=== PATIENT | female | born 1995 | race Caucasian/White ===

== ENCOUNTER 2023-12-09 17:47 | Emergency (ER) | payer MEDICAID, OTHER ==
[~2023-12-09] VITALS: Ht 154.9 cm; Wt 42.0 kg
[2023-12-09 19:09] LABS: BASOPHILS # (AUTO) 0.1 X10'3 (0-0.2); BASOPHILS % (AUTO) 0.8 % (0-1); EOSINOPHILS # (AUTO) 0.1 X10'3 (0-0.9); EOSINOPHILS % (AUTO) 1.6 % (0-6); HEMATOCRIT 37.4 % (35.0-45.0); HEMOGLOBIN 13.1 g/dl (12.0-16.0); LYMPHOCYTES # (AUTO) 2.7 X10'3 (1.1-4.8); LYMPHOCYTES % (AUTO) 32.5 % (21-51); MEAN CORPUSCULAR HEMOGLOBIN 31.4 PG (27.0-31.0); MEAN CORPUSCULAR VOLUME 89.6 FL (78-98); MEAN PLATELET VOLUME 8.8 FL (7.4-10.4); MONOCYTES # (AUTO) 0.5 X10'3 (0-0.9); MONOCYTES % (AUTO) 6.2 % (2-12); NEUTROPHILS % (AUTO) 58.9 % (42-75); PLATELET COUNT 276 X10'3 (140-440); RED BLOOD COUNT 4.18 X10'6 (4.20-5.60); RED CELL DISTRIBUTION WIDTH 12.9 % (11.5-14.5); WHITE BLOOD COUNT 8.4 X10'3 (4.5-11.0)
[2023-12-09 19:19] LABS: ALANINE AMINOTRANSFERASE 17 U/L (12-78); ALBUMIN 4.1 G/DL (3.4-5.0); ALBUMIN/GLOBULIN RATIO 1.2 (1.1-1.5); ALKALINE PHOSPHATASE 32 IU/L (46-116); ANION GAP 12 (8-16); ASPARTATE AMINO TRANSFERASE 19 U/L (10-37); BILIRUBIN,TOTAL 0.4 MG/DL (0.1-1.0); BLOOD UREA NITROGEN 6 MG/DL (7-18); BUN/CREATININE RATIO 9.4 (10.0-20.0); CALCIUM 8.8 MG/DL (8.5-10.1); CHLORIDE 106 MMOL/L (99-107); CREATININE 0.64 MG/DL (0.40-0.90); GLUCOSE 95 MG/DL (70-104); POTASSIUM 3.2 MMOL/L (3.5-5.1); SODIUM 141 MMOL/L (135-145); TOTAL CARBON DIOXIDE 23.3 MMOL/L (24-32); TOTAL PROTEIN 7.5 G/DL (6.4-8.2); eCRCL 86 ML/MIN; eGFR > 90 ML/MIN
[2023-12-09 19:27] LABS: PRO BRAIN NATRIURETIC PEPTIDE < 30 PG/ML (0-125)
[2023-12-09 20:15] VITALS: BP 118/89; PULSE 89; RESP 18; O2SAT 98
== END 2023-12-09 21:14 | disposition home or self-care (01) ==
LOC: ER 17:47
DX: R07.89 Other chest pain (principal); F41.9 Anxiety disorder, unspecified; Z88.2 Allergy status to sulfonamides
CPT/HCPCS: 36415; 71045; 80053; 83880; 84484; 85025; 93005; 99285

== ENCOUNTER 2024-11-09 15:23 | Emergency (ER) | payer MEDICAID, OTHER ==
[~2024-11-09] VITALS: Ht 157.5 cm; Wt 39.4 kg
--- NOTE | 2024-11-09 15:40 | ELECTROCARDIOGRAPH REPORT ---
[facility] Test Date: 2024-11-09 Test Time: 15:31:34 Pat Name: FÁTIMA WANG Department: EMERGENCY ROOM Room: Gender: F [employer]: : 1995 Requested By: DEPARTMENT EMERGENCY Order Number: [id number] Reading MD: Dr. Bob Moody Measurements Intervals [place] Rate: 121 P: 0 OK: 109 QRS: 265 QRSD: 91 T: 18 QT: 300 QTc: 426 Interpretive Statements A-V dual-paced complexes w/ some inhibition No further analysis attempted due to paced rhythm Electronically Signed On 11-09-2024 18:24:[address] Bob Moody Please click the below link to view image of tracing.
[2024-11-09 16:10] LABS: MEAN PLATELET VOLUME 9.3 FL (7.4-10.4); RED CELL DISTRIBUTION WIDTH 13.5 % (11.5-14.5)
--- NOTE | 2024-11-09 16:50 | Physician Documentation ---
History of Present Illness ~ Chief Complaint: Chest Pain Stated Complaint: HIGH HEART RATE Time Seen by MD: 18:55 OK to notify your PCP?: Yes Primary Medical Doctor: FROM OUT [place]OWN Source: patient, RN/MD, RN notes reviewed, old records Mode of Arrival: POV Exam Limitations: no limitations HPI This is a 29-year-old female with a history of recurrent episodes of sinus tachycardia, patient reports that she had a episode of tachycardia earlier today resulting in feeling of chest pain, shortness of breath and weakness, patient reports pulse at home was 168. Patient reports that she is seen by Dr. Canchola for this condition. Patient informs me that she has had prior echocardiograms but never prescribed any medications she no longer takes any stimulants such as caffeine. However today she was having severe tightness dizziness sweaty felt like she was going to pass out and had a near syncopal event. She is still having chest pain at rest despite her heart rate now in the 110s. Patient is not on any medications. She states her baseline low blood pressure of a systolic of 110 may be why she is not on blood pressure medications she is unaware. 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 The episode seemed to be more frequent and severe. She has never been referred to an supply chain systems manager. Medication Reconciliation Allergies: Coded Allergies: Sulfa (Sulfonamide Antibiotics) (Verified Allergy, Unknown, 11/09/24) Past Medical History Past Medical History: Arrhythmia, Anxiety Past Surgical History: no surgical history Alcohol Use: Occasionally Drug Use: none Lives with: Family Lives In: Home Occupation: unemployed Review of Systems All Other Systems at this time: Reviewed and Negative ROS As stated above in the HPI, otherwise all systems are reviewed and negative. Physical Exam Vital Signs: RN Vital Signs have been reviewed: Yes, Temperature: 98.7, Source: Oral, Heart Rate: 121, Respiratory Rate: 18, BP: 112/73, Pulse Oximetry: 98, Weight: 39.400 Physical Exam VITALS: Reviewed and as above. GENERAL: Alert, nontoxic appearing, no apparent distress. HEENT: RESPIRATORY: No increased work of breathing, no respiratory distress, speaking in full clear sentences General: The patient is well developed, well nourished, nontoxic appearing and is in mild acute distress. Skin: [place], warm and dry with no rashes. HEENT: Head was normocephalic and atraumatic. Eyes - pupils equal, round, reactive to light and accommodation. Extraocular movements were intact. Conjunctivae were nonicteric. The mouth and oropharynx were clear with moist mucous membranes. Neck: Supple and nontender. There was no jugular venous distention, Chest: Clear to auscultation bilaterally without wheezes, rales or rhonchi. No accessory muscle use. Heart: Rate regular and rhythmic. S1, S2. No murmurs. Palpation of the chest wall was normal Abdomen: Soft, nontender and nondistended. Positive bowel sounds. No guarding or rebound. Extremities: No cyanosis, clubbing or edema. The patient moves all extremities. Pulses were equal and symmetric. Neurologic: Motor sensory grossly intact Psychologic: The patient was oriented to person, place and time. The patient demonstrated appropriate judgement and insight. Progress Results/Orders Reviewed/noted all lab results: Yes Results/Orders Orders - BOB MOODY MD Drug Screen, Urine (11/09/24 19:03) Completed Orders - BOB MOODY MD Pt Inr (11/09/24 19:03) PTT (11/09/24 19:03) Vital Signs 11/09/24 11/09/24 11/09/24 15:54 19:57 19:57 Temp 98.7 98.7 Pulse 121 107 Resp 18 23 20 B/P (MAP) 112/73 116/69 (85) Pulse Ox 98 99 Laboratory Tests Test 11/09/24 15:34 11/09/24 18:23 11/09/24 19:23 White Blood Count 10.1 Red Blood Count 4.51 Hemoglobin 13.5 Hematocrit 39.9 Mean Corpuscular Volume 88.6 Mean Corpuscular Hemoglobin 29.9 Mean Corpuscular Hemoglobin Concent 33.8 Red Cell Distribution Width 13.5 Platelet Count 277 Mean Platelet Volume 9.3 Neutrophils (%) (Auto) 65.3 Lymphocytes (%) (Auto) 24.1 Monocytes (%) (Auto) 6.8 Eosinophils (%) (Auto) 3.1 Basophils (%) (Auto) 0.7 Neutrophils # (Auto) 6.6 Lymphocytes # (Auto) 2.4 Monocytes # (Auto) 0.7 Eosinophils # (Auto) 0.3 Basophils # (Auto) 0.1 CBC Comment Prothrombin Time 10.7 INR International Normalized Ratio 1.0 Activated Partial Thromboplast Time 27 Coagulation Comments Sodium Level 139 Potassium Level 3.6 Chloride Level 107 Carbon Dioxide Level 21.8 L Anion Gap 10 Blood Urea Nitrogen 7 Creatinine 0.63 Estimated GFR/1.73 m2 > 90 BUN/Creatinine Ratio 11.1 Glucose Level 111 H Calcium Level 9.2 Magnesium Level 2.2 Total Creatine Kinase 66 Troponin I High Sensitivity 6 4 4 Pro-B-Type Natriuretic Peptide 65 Albumin 4.1 Chemistry Comments Ethyl Alcohol Level < 10 Troponin I High Sens Percent Delta 33 0 Troponin I Hi Sens Absolute Change -2 0 Re-Evaluation Re-Evaluation : Re-Evaluation: Improved Progress Patient was seen and examined patient was given reassurance. Patient has been having recurrent episodes of SVT getting progressively worse now having secondary symptoms of chest pain. Possible considerations is high output heart failure. Tachyarrhythmias, other arrhythmias other than SVT since this was not documented. Patient is in sinus tachycardia at this time. Laboratory work was obtained. Laboratory work showed a normal CBC without anemia leukocytosis or abnormality. Chemistry shows negative troponins x3 without electrolyte abnormalities CO2 slightly decreased at 21.8. Alcohol is negative. After discussing the case with the family patient will follow up on outpatient basis with Dr. Canchola. Heart rate is now in the 100s. Patient will need electrophysiology consultation and re-evaluation also possible sotalol or other antiarrhythmic. Continuous equipment monitor phototypesetting interpretation shows Sinus tachycardia heart rate 140s, abnormal, my interpretation. Pulse oximetry monitor interpretation shows normal oxygenation at 99% room air, normal, my interpretation. EKG/XRAY/CT/US/VASC/MRI EKG : Intepreting Monitor?: Yes Additional Comment [facility] Test Date: 2024-11-09 Test Time: 15:31:34 Pat Name: FÁTIMA WANG Department: EMERGENCY ROOM Room: Gender: F [employer]: : 1995 Requested By: DEPARTMENT EMERGENCY Order Number: [id number] Reading : Dr. Bob Moody Measurements Intervals [place] Rate: 121 P: 0 TN: 109 QRS: 265 QRSD: 91 T: 18 QT: 300 QTc: 426 Interpretive Statements A-V dual-paced complexes w/ some inhibition No further analysis attempted due to paced rhythm Electronically Signed On 11-09-2024 18:24:[address] Bob Moody Please click the below link to view image of tracing. EKG Date and Time:11/09/24 1531 Chest X-Ray : Additional Comments CHEST RADIOGRAPH Indication: CP Technique: Single frontal view of the chest was obtained Comparison: DI CHEST,SINGLE VIEW on DOS: 12/09/23 FINDINGS: Lines and Tubes: None Lungs: No focal consolidation. Pleura: No effusion. No pneumothorax. Cardiomediastinal contours: Unremarkable Bones: No acute osseous abnormality. IMPRESSION: No acute cardiopulmonary disease. Electronically Signed by:ROSA IVERSON DO Date & Time: 11/09/24 1648 Heart Score: Heart Score Response (Comments) Value History Slightly Suspicious 0 EKG Repolarization Disturb 1 Age 45-64 1 Risk Factors No known risk factors 0 Troponin Normal limit 0 Total 2 Medical Decision Making Additional info obtained from: old records Findings MSE performed in triage and patient returned to ED lobby by nursing staff to await available ED room Differential Dx:Considerations: Include: angina, aortic dissection, chest wall pain, cholelithiasis, CHF, costochondritis, esophageal reflux/spasm, gastritis, herpes zoster, myocardial infarction, pericarditis, pleuritis, pancreatitis, pneumonia, pneumothorax, pulmonary embolus, other Departure Disposition: 01 HOME / SELF CARE / HOMELESS Admission Level of Care: PCU with Tele Impression: Primary Impression: Near syncope Additional Impression: SVT (supraventricular tachycardia) Condition: Fair Discharge Instructions: Supraventricular Tachycardia, Adult, [id number] Referrals: NO PRIMARY CARE PROVIDER (PCP) Education Educated: Patient Educated regarding: diagnosis, need for follow up, other Signature Scribe Signature: x Attestation: GEORGETTE Quintero Nov 09, 2024 16:50 BOB MOODY MD Nov 09, 2024 19:02
[2024-11-09 17:23] LABS: CREATININE 0.63 MG/DL (0.40-0.90); PRO BRAIN NATRIURETIC PEPTIDE 65 PG/ML (0-125); TOTAL CARBON DIOXIDE 21.8 MMOL/L (24-32); eCRCL 81 ML/MIN; eGFR > 90 ML/MIN
[2024-11-09 19:24] LABS: APTT 27 SECONDS (22-32); INR 1.0 INR
[2024-11-09 19:27] LABS: ETHANOL < 10 MG/DL (<10)
[2024-11-09 19:57] VITALS: BP 116/69; PULSE 107; RESP 23; TEMP 98.7; O2SAT 99
== END 2024-11-09 20:19 | disposition home or self-care (01) ==
LOC: ER 15:23
DX: I47.10 Supraventricular tachycardia, unspecified (principal); R55 Syncope and collapse; F41.9 Anxiety disorder, unspecified; Z88.2 Allergy status to sulfonamides; Z72.89 Other problems related to lifestyle; Z56.0 Unemployment, unspecified
CPT/HCPCS: 36415; 71045; 80048; 80320; 82550; 83735; 83880; 84484; 85025; 85610; 85730; 93005; 99285